=== PATIENT | female | born 1975 | race African-American/Black ===

== ENCOUNTER 2020-03-10 07:29 | Emergency (ER) | payer OTHER ==
[~2020-03-10] VITALS: Ht 172.7 cm; Wt 84.0 kg
[~2020-03-10 07:29] MED LIST: CYCL10TA2 PO; HYDR-3164 PO
[2020-03-10 07:33] VITALS: BP 130/92
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
[2020-03-10] MEDS ORDERED: diazePAM 5 MG TABLET PO ONE (08:00)
== END 2020-03-10 08:09 | disposition home or self-care (01) ==
LOC: ER 07:29
DX: S16.1XXA Strain of muscle, fascia and tendon at neck level, initial encounter (principal); M79.10 Myalgia, unspecified site; R10.9 Unspecified abdominal pain; Z88.0 Allergy status to penicillin; V49.49XA Driver injured in collision with other motor vehicles in traffic accident, initial encounter; Y92.488 Other paved roadways as the place of occurrence of the external cause; Y93.89 Activity, other specified; Y99.8 Other external cause status
CPT/HCPCS: 99283

== ENCOUNTER → 2020-03-26 | Outpatient (CLI) | payer OTHER ==
[2020-03-10 07:33] VITALS: BP 130/92
--- NOTE | 2020-03-26 12:29 | KCIC ---
EXAM: Cervical spine, 3 views. HISTORY: Paresthesia. COMPARISON: None. FINDINGS: 3 views of the cervical spine are obtained. There is mild reversal cervical lordosis. There is slight retrolisthesis of C2 on C3. There is degenerative endplate remodeling with anterior spurri ng primarily at C3 5 to C6 and C6-C7. No fracture is seen. IMPRESSION: Degenerative change primarily at C5-C6 and C6-C7. No acute osseous finding. Electronically signed by: Jazmín Cheatham MD (03/26/2020 12:27 PM) [id number]
== END ==
LOC: KCIC 11:08
PROVIDERS: ATTEND Family Medicine
DX: M47.812 Spondylosis without myelopathy or radiculopathy, cervical region (principal); R20.2 Paresthesia of skin
CPT/HCPCS: 72040

== ENCOUNTER 2021-04-20 04:16 | Emergency (ER) | payer OTHER ==
[~2021-04-20] VITALS: Ht 172.7 cm; Wt 79.0 kg
[~2021-04-20 04:16] MED LIST changes: +CYCL10TA19 PO; -CYCL10TA2 PO
[2021-04-20 04:22] VITALS: BP 139/96
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
[2021-04-20] MEDS ORDERED: KETOROLAC 30 MG/ML VIAL. IM ONE (05:30)
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
[2021-04-20] MEDS ORDERED: CYCL10TA19 PO (07:12)
== END 2021-04-20 07:31 | disposition home or self-care (01) ==
LOC: ER 04:16
DX: M54.2 Cervicalgia (principal); G89.11 Acute pain due to trauma; M54.50 Low back pain, unspecified; M25.511 Pain in right shoulder; M25.551 Pain in right hip; Z88.0 Allergy status to penicillin; Z88.6 Allergy status to analgesic agent; Z88.8 Allergy status to other drugs, medicaments and biological substances; V49.49XA Driver injured in collision with other motor vehicles in traffic accident, initial encounter; Y93.89 Activity, other specified; Y92.488 Other paved roadways as the place of occurrence of the external cause; Y99.8 Other external cause status
CPT/HCPCS: 72125; 72131; 73030; 73502; 81025; 96372; 99284; J1885